=== PATIENT | male | born 1950 | race African-American/Black ===

== ENCOUNTER → 2016-10-10 | Outpatient (CLI) | payer MEDICARE, OTHER ==
[~2016-10-10] MED LIST: ASPIRIN PO; ATENOLOL PO; CERTAGEN PO; CLARITIN D PO; CLINDAMYCIN HC300 MG PO; COUMADIN PO; LANTUS100 U/ML SUBQ; LISINOPRIL PO; NORCO 5/325 TAB1 TAB PO; NOVOLOG100 U/ML SUBQ; OXAPROZIN600 MG PO; ULTRAM PO; ZOCOR PO
--- NOTE | ~2016-10-10 | MR113 ---
[facility] A Service of [facility] & [facility] RADIOLOGY TEXT RESULTS PATIENT: JOSE CASPER JR LOCATION: [facility] : 48 UNIT #: [id number] AGE: [address]: Delphine Pathak MD SEX: M ORDER DR: [id number] [facility] [address] [place], [place] [address] [id number] O MR#: [id number] Acc #: [id number] NAME: JOSE CASPER JR : 1950 SEX: M STUDY DATE/TIME: 10/10/2016 18:04 UNIT: [facility] ROOM: STUDY DESCRIPTION: MR Lumbar Wo Contrast Attending Physician: Delphine Pathak M.D. Referring Physician: Delphine Pathak M.D. Ordering Physician: Delphine Pathak M.D. Primary Care Physician: Delphine Pathak M.D. MRI CENTER REPORT This report is preliminary unless electronic signature is present. EXAM MRI of the lumbar spine without contrast dated 10/10/2016 COMPARISON MRI lumbar spine without contrast dated 04/24/2015 HISTORY Low back pain with bilateral leg pain, numbness for 4 months. FINDINGS Multisequence multiplanar imaging of the lumbar spine was obtained without contrast. There is diffuse decreased T1 signal in the lumbar vertebrae, likely relating to decreased fatty marrow conversion. No discrete bony mass, bone edema, acute fracture or subluxation is seen. Degenerative disc disease is noted at multiple levels of the thoracolumbar spine. Conus terminates at L1-2. In the posterior aspect of the distal thoracic cord/conus, at the level of L1, there is a 5.0 x 5.0 x 9.0 mm increased T2-signal lesion in the mid to right paramidline aspect of the cord. It was also noted in the prior study from last year, subtle. Edema is noted within the posterior subcutaneous soft tissue of the back, particularly from L1 to L3-4. Retroperitoneum does not demonstrate any significant abnormality. T11-12: Moderate disc osteophyte complex with superimposed diuul-uj-lvll subarticular broad-based disc protrusions. There is asymmetrical prominence of soft tissue in the right foraminal to extraforaminal region (series 7, image 42). Superimposed disc extrusion is suspected in this region with severe impingement of the exiting nerve root. Gtklcltn-ow-vhpoej canal stenosis, hmnx-pf-xrcbxvha bilateral lateral recess stenosis, mild bilateral facet hypertrophic changes, qkba-ko-ntjsqwsn left neural foraminal narrowing are present. Axials were not obtained on the prior study for comparison. Sagittals are relatively stable. [facility] A Service of [facility] RADIOLOGY TEXT RESULTS PATIENT: JOSE CASPER JR LOCATION: [facility] : 48 UNIT #: [id number] AGE: [address]: Delphine Pathak MD SEX: M ORDER DR: L1-2: Mild to moderate concentric disc bulge with superimposed central to left subarticular broad-based disc protrusion which is most prominent in the center. Mild canal stenosis is seen. Mild bilateral inferior neural foraminal narrowing is seen, worse on the left. Mild bilateral facet changes are also present. L2-3: Suspicious small central protrusion. Tdnu-kn-zvvqelas bilateral facet changes are noted with mild inferior bilateral neural foraminal encroachment. Borderline size to mild canal stenosis. L3-4: Concentric disc bulge with mild bilateral facet changes. No significant canal stenosis or neural foraminal narrowing. L4-5: Concentric disc bulge with superimposed oskxj-zx-guns subarticular moderate broad-based disc protrusion with an extruded component in the center with mild inferior migration of 1.2 cm. There is qndqlhuq-zv-gyikdi canal stenosis, moderate bilateral lateral recess stenosis, goop-sw-tkbprmzo bilateral neural foraminal narrowing. Bepmrfbh-sk-szuhzk left, mild right facet hypertrophic changes are present. Stable. L5-S1: Moderate disc bulge with superimposed central protrusion. Very severe bilateral facet hypertrophic changes are present. Ligamentum flavum thickening is noted with asymmetrical prominence in the anteromedial aspect of the bilateral facet joints particularly in the left with likely subligamentous cyst/inflammatory tissue particularly in the left. There is htrd-fa-okieiphj bilateral lateral recess stenosis, worse on the left. Borderline size canal. Twpg-kt-gziomdyf bilateral neural foraminal narrowing are present. Stable. IMPRESSION 1. There is a lesion suspected in the posterior aspect of L1 cord measuring about 8.0-9.0 mm in height. It is best seen in series 5, image 9. Retrospectively it was probably present on the prior study too from last year. Postcontrast imaging is suggested for further evaluation. It has not significantly worsened in the interval, favoring a chronic slow growing abnormality. 2. Degenerative changes are noted at multiple levels, worst at T11-12 with probably right foraminal to extraforaminal extrusion with impingement of the exiting nerve root. There is also significant disc disease causing severe canal stenosis with bilateral lateral recess stenosis. Relatively stable based on the sagittal images but axials were not obtained previously to help with comparison. 3. Disc disease is also noted at multiple other levels, relatively worse at L4-5 in the lumbar spine followed by L5-S1. Stable. 4. Findings were discussed with Dr. Pathak at 09:30 a.m. on 10/11/2016. Dictated by... [facility]. [facility] A Service of [facility] RADIOLOGY TEXT RESULTS PATIENT: JOSE CASPER JR LOCATION: [facility] : 48 UNIT #: [id number] AGE: [address]: Delphine Pathak MD SEX: M ORDER DR: Bjorn Trejo M.D. THIS IS AN ELECTRONICALLY VERIFIED REPORT Bjorn Trejo M.D. at 10/14/2016 4:12 PM CPR/earl TD: 10/11/2016 12:49 JOB #: [id number] MRI CENTER REPORT Page 1 of 1 COPY
== END | disposition home or self-care (01) ==
LOC: CMRI 17:36
DX: M51.16 Intervertebral disc disorders with radiculopathy, lumbar region (principal); M51.17 Intervertebral disc disorders with radiculopathy, lumbosacral region; M47.894 Other spondylosis, thoracic region; M48.06 Spinal stenosis, lumbar region
CPT/HCPCS: 72148

== ENCOUNTER → 2016-10-16 | Outpatient (CLI) | payer MEDICARE, OTHER ==
--- NOTE | ~2016-10-16 | MR111 ---
[facility] A Service of [facility] & [facility] RADIOLOGY TEXT RESULTS PATIENT: JOSE CASPER JR [facility] : [facility] UNIT #: [id number] AGE: [address]: Delphine Pathak MD SEX: M ORDER DR: [id number] [facility] [address] [place], [place] [address] [id number] O MR#: [id number] Acc #: [id number] NAME: JOSE CASPER JR : 1950 SEX: M STUDY DATE/TIME: 10/16/2016 16:00 UNIT: [facility] ROOM: STUDY DESCRIPTION: MR Lumbar W Contrast Attending Physician: Delphine Pathak M.D. Referring Physician: Delphine Pathak M.D. Ordering Physician: Delphine Pathak M.D. Primary Care Physician: Delphine Pathak M.D. MRI CENTER REPORT This report is preliminary unless electronic signature is present. EXAM MRI of the lumbar spine with contrast dated 10/16/2016 COMPARISON MRI lumbar spine without contrast dated 10/10/2016, 04/24/2015. CT lumbar spine without contrast dated 03/17/2015. FINDINGS Patient was brought back to obtain postcontrast images to evaluate for a possible suspicious lesion in L1 posterior cord/conus. FINDINGS Postcontrast sequences along with DWI sequences were obtained. GFR measured greater than 60. 20 mL of MultiHance was administered. T2 sequences were not obtained took another look at the lesion to confirm if it is indeed read. The given postcontrast sequences do not demonstrate abnormal enhancement or any discernible lesions. Degenerative changes have been the previously described. Refer to it. Stable. IMPRESSION 1. Increased T2 signal is noted within the posterior aspect of L1 cord on the precontrast sequences obtained last week. No abnormal enhancement is noted in this region. It is less likely to be an acute infectious/inflammatory or an aggressive tumor. 2. White matter lesions like demyelinating MS plaques are still in the differential consideration depending on the clinical setting. There are other posterior column lesions also that can cause similar signal change like subacute combined degeneration. 3. Clinical correlation and follow up in 6 months to a year is suggested. Earlier followup can also be obtained if symptoms worsen. Dictated by... Bjorn Trejo M.D. [facility] A Service of [facility] RADIOLOGY TEXT RESULTS PATIENT: JOSE CASPER JR LOCATION: [facility] : 48 UNIT #: [id number] AGE: [address]: Delphine Pathak MD SEX: M ORDER DR: THIS IS AN ELECTRONICALLY VERIFIED REPORT Bjorn Trejo M.D. at 10/17/2016 5:30 PM CPR/rnr TD: 10/17/2016 12:26 JOB #: [id number] MRI CENTER REPORT Page 1 of 1 COPY
[2016-10-16 16:11] LABS: POC - CREATININE 0.89 mg/dL (0.64-1.27); POC - GFR >60.0 mL/min (>60)
== END | disposition home or self-care (01) ==
LOC: CMRI 15:26
PROVIDERS: Internal Medicine
DX: M89.9 Disorder of bone, unspecified (principal)
CPT/HCPCS: 72149; 82565; A9577